=== PATIENT | female | born 1995 | race Caucasian/White ===

== ENCOUNTER 2024-03-19 08:01 | Outpatient (CLI) | payer OTHER, SELFPAY ==
[2024-03-19 08:41] LABS: Cholesterol 128 mg/dL (0-200); HDL Direct 59 mg/dL (40-60); LDL Cholesterol Calculated 63 mg/dL (<130); Triglycerides 28 mg/dL (0-150)
== END 2024-03-19 08:02 | disposition home or self-care (01) ==
LOC: CHSLAB 08:06
PROVIDERS: PCP Family Medicine; Visit Provider Family Medicine
DX: Z13.220 Encounter for screening for lipoid disorders (principal)
CPT/HCPCS: 36415; 80061